=== PATIENT | female | born 1955 | race Caucasian/White ===

== ENCOUNTER 2022-08-31 11:41 | Emergency (ER) | payer OTHER ==
[2022-08-31] MEDS ORDERED: Lidocaine 1% 10 ML MDV INJECT ONE (12:14)
[2022-08-31] MEDS ORDERED: Diphtheria,Pertussis(Acell),Tetanus Vaccine 0.5 ML Syringe IM ONE (12:14)
[2022-08-31] MEDS ORDERED: Albuterol 0.083% 2.5 MG/3 ML Neb Soln NEB ONE (12:15)
[2022-08-31] MEDS ORDERED: Doxycycline Monohydrate 100 MG Cap PO ONE (14:26)
== END 2022-08-31 15:30 | disposition home or self-care (01) ==
LOC: JD.ED 11:41
DX: S81.812A Laceration without foreign body, left lower leg, initial encounter (principal); Z23 Encounter for immunization; W01.198A Fall on same level from slipping, tripping and stumbling with subsequent striking against other object, initial encounter
CPT/HCPCS: 12002; 90471; 90715; 94640; 99283; A9270; J3490; J7620-GY

== ENCOUNTER 2023-09-18 20:15 | Emergency (ER) | payer OTHER ==
[2023-09-18 20:52] LABS: BASOPHILS PERCENT AUTO 0.4 % (0.0-1.0); HEMATOCRIT 44.2 % (37.0-47.0); HEMOGLOBIN 14.8 gm/dl (12.0-16.0); IMMATURE GRAN ABSOLUTE AUTO 0.06 K/mm3 (0.00-0.05); IMMATURE GRAN PERCENT AUTO 0.6 % (0.0-0.4); LYMPHOCYTES ABSOLUTE AUTO 1.3 K/mm3 (1.0-4.8); LYMPHOCYTES PERCENT AUTO 12.2 % (24.0-44.0); MEAN CORPUSCULAR HEMOGLOBIN 28.9 pg (28.0-32.0); MEAN CORPUSCULAR HGB CONC 33.5 g/dl (32.0-36.0); MEAN CORPUSCULAR VOLUME 86.3 fl (83.0-99.0); MEAN PLATELET VOLUME 10.5 fl (9.4-12.3); MONOCYTES ABSOLUTE AUTO 0.4 K/mm3 (0.0-0.8); MONOCYTES PERCENT AUTO 3.8 % (0.0-8.0); NEUTROPHILS ABSOLUTE AUTO 8.6 K/mm3 (1.8-7.7); PLATELET COUNT,PLT 178 K/mm3 (150-400); RED BLOOD CELL COUNT 5.12 M/mm3 (4.10-5.30)
[2023-09-18] MEDS: Albuterol/Ipratropium 3.0-0.5 MG/3 ML Neb Soln NEB ONE (21:05)
[2023-09-18] MEDS: Sodium Chloride 0.9% 10 ML Syringe FLUSH PRN (21:15)
[2023-09-18] MEDS: methylPREDNISolone Sodium Succinate 125 MG/2 ML SDV IVPUSH ONE (21:15)
[2023-09-18 21:22] LABS: A/G RATIO 0.6 (1-2); BILIRUBIN TOTAL 1.1 mg/dL (0.2-1.0); BUN/CREATININE RATIO 14.5 (14-18); CALCIUM 9.1 mg/dL (8.5-10.1); EST CRCL DRUG DOSING (CG) 26.54 mL/min; MAGNESIUM 1.4 mg/dL (1.8-2.4); PROTEIN TOTAL,TP 8.3 g/dl (6.4-8.2)
[2023-09-18] MEDS: Sodium Chloride 0.9% 1,000 ML IV ONE (21:37)
[2023-09-18 21:48] LABS: CORONAVIRUS COVID-19 NAA NEGATIVE (NEGATIVE); INFLUENZA A NAA NEGATIVE (NEGATIVE); RESPIRATORY SYNCYTIAL VIR NAA NEGATIVE (NEGATIVE)
[2023-09-19] MEDS: Magnesium Sulfate/Water 2 GM in Premix Bag 1 BAG IV ONE (00:09)
[2023-09-19] MEDS: Bumetanide 1 MG/4 ML MDV IVPUSH ONE (00:09)
== END 2023-09-19 07:43 | disposition home or self-care (01) ==
LOC: JD.ED 20:15
DX: J45.909 Unspecified asthma, uncomplicated (principal); I10 Essential (primary) hypertension; E66.9 Obesity, unspecified; E11.9 Type 2 diabetes mellitus without complications; Z88.0 Allergy status to penicillin; Z88.1 Allergy status to other antibiotic agents; Z88.7 Allergy status to serum and vaccine; Z88.2 Allergy status to sulfonamides; Z88.8 Allergy status to other drugs, medicaments and biological substances; Z79.4 Long term (current) use of insulin; Z79.899 Other long term (current) drug therapy; Z91.048 Other nonmedicinal substance allergy status; Z88.5 Allergy status to narcotic agent; Z90.49 Acquired absence of other specified parts of digestive tract; Z90.710 Acquired absence of both cervix and uterus; Z68.43 Body mass index [BMI] 50.0-59.9, adult
CPT/HCPCS: 0241U; 36415; 71046; 80053; 83735; 84484; 85025; 93005; 94640; 96361; 96365; 96366; 96375; 99285; J2930; J3475; J3490; J7030; 93010; 99284; J7620-GY

== ENCOUNTER 2024-07-07 10:02 | Inpatient (IN) | payer OTHER ==
[~2024-07-07 10:02] MED LIST: Enoxaparin 40 MG/0.4 ML Syringe SUBCUT SCH
[2024-07-07 11:05] LABS: HEMATOCRIT 45.4 % (37.0-47.0); HEMOGLOBIN 14.7 gm/dl (12.0-16.0); MEAN CORPUSCULAR HEMOGLOBIN 28.5 pg (28.0-32.0); MEAN CORPUSCULAR HGB CONC 32.4 g/dl (32.0-36.0); MEAN PLATELET VOLUME 10.3 fl (9.4-12.3); PLATELET COUNT,PLT 201 K/mm3 (150-400); RED BLOOD CELL COUNT 5.16 M/mm3 (4.10-5.30)
[2024-07-07 11:25] LABS: INR 1.01; PROTHROMBIN TIME 10.7 SECONDS (9.7-12.0)
[2024-07-07 11:30] LABS: LACTIC ACID 1.2 mmol/L (0.4-2.0)
[2024-07-07] MEDS: cefTRIAXone 2 GM Vial IVPUSH ONE (11:33)
[2024-07-07 11:35] LABS: A/G RATIO 0.6 (1-2); ANION GAP 13.2 (5-15); BILIRUBIN TOTAL 0.6 mg/dL (0.2-1.0); BUN/CREATININE RATIO 15.5 (14-18); C-REACTIVE PROTEIN 0.42 mg/dL (<0.30); CALCIUM 9.1 mg/dL (8.5-10.1); CREATININE 2.2 mg/dL (0.55-1.02); EST CRCL DRUG DOSING (CG) 24.69 mL/min; POTASSIUM,K 4.2 mEq/L (3.5-5.1); PROTEIN TOTAL,TP 7.9 g/dl (6.4-8.2)
[2024-07-07] MEDS: Sodium Chloride 0.9% 10 ML Syringe FLUSH PRN (11:38)
[2024-07-07 11:56] LABS: BAND PERCENT MAN 0 % (0-10); BASOPHILS PERCENT MAN 0 (0.1-1.2); EOSINOPHILS PERCENT MAN 2 % (0.7-5.8); LYMPHOCYTES % ATYPICAL MANUAL 0 %; LYMPHOCYTES PERCENT MAN 39 % (20-40); MONOCYTES PERCENT MAN 7 % (2-10); PLATELET COUNT ESTIMATE ADEQUATE
[2024-07-07] MEDS ORDERED: Ondansetron 4 MG/2 ML SDV IV PRN (14:03)
[2024-07-07] MEDS ORDERED: Polyethylene Glycol 3350 Powder 17 GM Packet PO PRN (14:03)
[2024-07-07] MEDS ORDERED: Ondansetron 4 MG Tab.DIS PO PRN (14:03)
[2024-07-07] MEDS ORDERED: Docusate Sodium 100 MG Cap PO PRN (14:03)
[2024-07-07] MEDS ORDERED: Acetaminophen 325 MG Tab PO PRN (14:03)
[2024-07-07 14:36] LABS: HEMOGLOBIN A1C 8.5 %
[2024-07-07] MEDS ORDERED: Non-Formulary Medication 1 Each (Albuterol 18 GM Inhaler) INH PRN (15:01)
[2024-07-07] MEDS ORDERED: Albuterol 6.7 GM Inhaler INH PRN (15:04)
[2024-07-07] MEDS ORDERED: Labetalol 100 MG/20 ML MDV IVPUSH PRN (15:40)
[2024-07-07] MEDS: Nystatin Topical Powder 15 GM Bottle TOP SCH (15:48)
[2024-07-07 16:19] LABS: APPEARANCE,URINE SLT CLOUDY (Clear); BILIRUBIN,URINE NEGATIVE (Negative); COLOR,URINE YELLOW (Yellow); GLUCOSE,URINE TRACE (Negative); KETONES,URINE NEGATIVE (Negative); LEUKOCYTE ESTERASE,URINE TRACE (Negative); NITRITE,URINE NEGATIVE (Negative); OCCULT BLOOD,URINE 1+ (Negative); PROTEIN,URINE 3+ (Negative)
[2024-07-07 16:35] LABS: BACTERIA,URINE FEW /hpf (FEW); MUCUS,URINE FEW /hpf (FEW); RBC,URINE 0-5 /hpf (0-5); SQUAMOUS EPITHELIAL CELLS,UR 0-5 /hpf (0-5); WBC,URINE 20-30 /hpf (0-5)
[2024-07-07] MEDS: Insulin Lispro 100 Unit/ML 3 ML KwikPen SUBCUT SCH (18:37)
[2024-07-07] MEDS: Insulin Glargine,Human Rec. Analog 100 Units/ML 3 ML Pen SUBCUT SCH (18:38)
[2024-07-07] MEDS: hydrALAZINE 20 MG/ML SDV IVPUSH PRN (21:29)
[2024-07-08 05:49] LABS: BASOPHILS PERCENT AUTO 0.6 % (0.0-1.0); EOSINOPHILS ABSOLUTE AUTO 0.3 K/mm3 (0.0-0.4); EOSINOPHILS PERCENT AUTO 3.4 % (0.0-6.0); HEMATOCRIT 42.9 % (37.0-47.0); HEMOGLOBIN 14.1 gm/dl (12.0-16.0); IMMATURE GRAN ABSOLUTE AUTO 0.02 K/mm3 (0.00-0.05); IMMATURE GRAN PERCENT AUTO 0.3 % (0.0-0.4); LYMPHOCYTES ABSOLUTE AUTO 2.6 K/mm3 (1.0-4.8); LYMPHOCYTES PERCENT AUTO 35.4 % (24.0-44.0); MEAN CORPUSCULAR HEMOGLOBIN 28.5 pg (28.0-32.0); MEAN CORPUSCULAR HGB CONC 32.9 g/dl (32.0-36.0); MEAN CORPUSCULAR VOLUME 86.7 fl (83.0-99.0); MEAN PLATELET VOLUME 10.4 fl (9.4-12.3); MONOCYTES ABSOLUTE AUTO 0.4 K/mm3 (0.0-0.8); MONOCYTES PERCENT AUTO 5.9 % (0.0-8.0); NEUTROPHILS ABSOLUTE AUTO 3.9 K/mm3 (1.8-7.7); NEUTROPHILS PERCENT AUTO 54.4 % (41.0-71.0); PLATELET COUNT,PLT 177 K/mm3 (150-400); RED BLOOD CELL COUNT 4.95 M/mm3 (4.10-5.30); WHITE BLOOD CELL COUNT,WBC 7.25 K/mm3 (3.9-11.3)
[2024-07-08 06:10] LABS: A/G RATIO 0.6 (1-2); ALBUMIN 2.8 g/dl (3.4-5.0); ANION GAP 11.3 (5-15); BILIRUBIN TOTAL 0.5 mg/dL (0.2-1.0); BUN/CREATININE RATIO 15.7 (14-18); C-REACTIVE PROTEIN 0.38 mg/dL (<0.30); CALCIUM 9.5 mg/dL (8.5-10.1); CREATININE 2.1 mg/dL (0.55-1.02); EST CRCL DRUG DOSING (CG) 25.86 mL/min; MAGNESIUM 1.7 mg/dL (1.8-2.4); POTASSIUM,K 4.3 mEq/L (3.5-5.1); PROTEIN TOTAL,TP 7.6 g/dl (6.4-8.2)
[2024-07-08] MEDS: Enoxaparin 40 MG/0.4 ML Syringe SUBCUT SCH (08:29)
[2024-07-08] MEDS: Insulin Glargine,Human Rec. Analog 100 Units/ML 3 ML Pen SUBCUT SCH (08:30)
[2024-07-08] MEDS: Losartan 25 MG Tab PO SCH (08:31)
[2024-07-08] MEDS: Carvedilol 12.5 MG Tab PO SCH (08:31)
[2024-07-08] MEDS: cefTRIAXone 2 GM Vial IVPUSH SCH (10:50)
[2024-07-08] MEDS ORDERED: Furosemide 40 MG Tab PO PRN (13:39)
== END 2024-07-08 17:37 | disposition home or self-care (01) | DRG 603 ==
LOC: JD.ED 10:02 → JD.MS 14:03
PROVIDERS: ADMIT Student in an Organized Health Care Education/Training Program; ATTEND Family Medicine
DX: L03.116 Cellulitis of left lower limb (principal); I13.0 Hypertensive heart and chronic kidney disease with heart failure and stage 1 through stage 4 chronic kidney disease, or unspecified chronic kidney disease; Z68.43 Body mass index [BMI] 50.0-59.9, adult; L97.821 Non-pressure chronic ulcer of other part of left lower leg limited to breakdown of skin; N18.4 Chronic kidney disease, stage 4 (severe); L02.416 Cutaneous abscess of left lower limb; I25.10 Atherosclerotic heart disease of native coronary artery without angina pectoris; I50.9 Heart failure, unspecified; E11.22 Type 2 diabetes mellitus with diabetic chronic kidney disease; J45.909 Unspecified asthma, uncomplicated; Z96.659 Presence of unspecified artificial knee joint; B35.4 Tinea corporis; E66.01 Morbid (severe) obesity due to excess calories; E11.69 Type 2 diabetes mellitus with other specified complication; E11.51 Type 2 diabetes mellitus with diabetic peripheral angiopathy without gangrene; Z95.5 Presence of coronary angioplasty implant and graft; Z79.899 Other long term (current) drug therapy; Z88.1 Allergy status to other antibiotic agents; Z88.5 Allergy status to narcotic agent; Z88.0 Allergy status to penicillin; Z88.2 Allergy status to sulfonamides; Z88.7 Allergy status to serum and vaccine; Z88.8 Allergy status to other drugs, medicaments and biological substances; Z79.4 Long term (current) use of insulin; Z79.51 Long term (current) use of inhaled steroids; Z98.890 Other specified postprocedural states; Z90.89 Acquired absence of other organs; Z90.49 Acquired absence of other specified parts of digestive tract; Z90.710 Acquired absence of both cervix and uterus
CPT/HCPCS: 36415; 80053; 81001; 82947; 83036; 83605; 83735; 83880; 84484; 85007; 85025; 85027; 85610; 86140; 87040; 87070; 87075; 87077; 87086; 87186; 87205; 93005; 93010; 96374; 97161-GP; 97530-GP; 99284-25; 99285; A9270-GY; J0360; J0696; J1650; J1815; J1815-GY

== ENCOUNTER 2025-01-05 09:45 | Inpatient (IN) | payer OTHER ==
[2025-01-05] MEDS ORDERED: Sodium Chloride 0.9% 10 ML Syringe FLUSH PRN (10:04)
[2025-01-05] MEDS: Furosemide 40 MG/4 ML VIAL IVPUSH ONE ×3 (10:13→17:59)
[2025-01-05 10:31] LABS: BASOPHILS ABSOLUTE AUTO 0.1 K/mm3 (0.0-0.2); BASOPHILS PERCENT AUTO 0.6 % (0.0-1.0); EOSINOPHILS ABSOLUTE AUTO 0.2 K/mm3 (0.0-0.4); EOSINOPHILS PERCENT AUTO 2.4 % (0.0-6.0); IMMATURE GRAN ABSOLUTE AUTO 0.04 K/mm3 (0.00-0.05); IMMATURE GRAN PERCENT AUTO 0.5 % (0.0-0.4); LYMPHOCYTES ABSOLUTE AUTO 2.6 K/mm3 (1.0-4.8); LYMPHOCYTES PERCENT AUTO 32.4 % (24.0-44.0); MEAN PLATELET VOLUME 10.4 fl (9.4-12.3); MONOCYTES ABSOLUTE AUTO 0.4 K/mm3 (0.0-0.8); MONOCYTES PERCENT AUTO 5.4 % (0.0-8.0); NEUTROPHILS ABSOLUTE AUTO 4.7 K/mm3 (1.8-7.7); NEUTROPHILS PERCENT AUTO 58.7 % (41.0-71.0); NRBC ABSOLUTE 0.00 (0.00-0.02); NRBC PERCENT 0.0 % (0.0-0.2); PLATELET COUNT,PLT 174 K/mm3 (150-400); RED BLOOD CELL COUNT 5.08 M/mm3 (4.10-5.30); WHITE BLOOD CELL COUNT,WBC 8.08 K/mm3 (3.9-11.3)
[2025-01-05 11:02] LABS: A/G RATIO 0.6 (1-2); ALANINE AMINOTRANSFERASE,ALT 19.0 U/L (14-59); ASPARTATE AMNIOTRANSFERASE,AST 16.0 U/L (15-37); BILIRUBIN TOTAL 0.4 mg/dL (0.2-1.0); BLOOD UREA NITROGEN,BUN 30.0 mg/dL (7-18); CARBON DIOXIDE,CO2 25.0 mEq/L (21-32); CHLORIDE,CL 107.0 mEq/L (98-107); CREATININE 2.1 mg/dL (0.55-1.02); EST CRCL DRUG DOSING (CG) 23.07 mL/min; ESTIMATED GFR 25.0 mL/min (>60); GLUCOSE RANDOM 180.0 mg/dL (70-99); POTASSIUM,K 4.2 mEq/L (3.5-5.1); PROTEIN TOTAL,TP 7.8 g/dl (6.4-8.2); SODIUM,NA 139.0 mEq/L (136-145); TROPONIN I HIGH SENSITIVITY 13.0 pg/mL (<=51)
[2025-01-05] MEDS ORDERED: Ondansetron 4 MG Tab.DIS PO PRN (13:26)
[2025-01-05] MEDS ORDERED: Ondansetron 4 MG/2 ML SDV IV PRN (13:26)
[2025-01-05] MEDS ORDERED: Albuterol 0.083% 2.5 MG/3 ML Neb Soln NEB PRN (15:00)
[2025-01-05] MEDS ORDERED: Formoterol/Mometasone 100-5 MCG 8.8 GM Inhaler INH PRN (15:19)
[2025-01-05 15:58] LABS: TSH 4.556 uIU/mL (0.358-3.74)
[2025-01-05] MEDS: Heparin Sodium 5,000 Units/ML Vial SUBCUT SCH (16:04)
[2025-01-05 16:18] LABS: T4 FREE 1.27 ng/dL (0.76-1.46)
[2025-01-05] MEDS: Insulin Lispro 100 Unit/ML 3 ML KwikPen SUBCUT SCH (17:46)
[2025-01-06] MEDS: Furosemide 40 MG/4 ML VIAL IVPUSH SCH (05:27)
[2025-01-06 06:06] LABS: BASOPHILS ABSOLUTE AUTO 0.1 K/mm3 (0.0-0.2); BASOPHILS PERCENT AUTO 0.7 % (0.0-1.0); EOSINOPHILS ABSOLUTE AUTO 0.2 K/mm3 (0.0-0.4); EOSINOPHILS PERCENT AUTO 2.6 % (0.0-6.0); IMMATURE GRAN ABSOLUTE AUTO 0.03 K/mm3 (0.00-0.05); IMMATURE GRAN PERCENT AUTO 0.4 % (0.0-0.4); LYMPHOCYTES ABSOLUTE AUTO 2.7 K/mm3 (1.0-4.8); LYMPHOCYTES PERCENT AUTO 37.0 % (24.0-44.0); MEAN PLATELET VOLUME 10.2 fl (9.4-12.3); MONOCYTES ABSOLUTE AUTO 0.5 K/mm3 (0.0-0.8); MONOCYTES PERCENT AUTO 6.5 % (0.0-8.0); NEUTROPHILS ABSOLUTE AUTO 3.9 K/mm3 (1.8-7.7); NEUTROPHILS PERCENT AUTO 52.8 % (41.0-71.0); NRBC ABSOLUTE 0.00 (0.00-0.02); NRBC PERCENT 0.0 % (0.0-0.2); PLATELET COUNT,PLT 159 K/mm3 (150-400); RED BLOOD CELL COUNT 4.86 M/mm3 (4.10-5.30); WHITE BLOOD CELL COUNT,WBC 7.36 K/mm3 (3.9-11.3)
[2025-01-06 06:27] LABS: A/G RATIO 0.6 (1-2); ALANINE AMINOTRANSFERASE,ALT 15.0 U/L (14-59); ASPARTATE AMNIOTRANSFERASE,AST 12.0 U/L (15-37); BILIRUBIN TOTAL 0.5 mg/dL (0.2-1.0); BLOOD UREA NITROGEN,BUN 34.0 mg/dL (7-18); CARBON DIOXIDE,CO2 28.0 mEq/L (21-32); CHLORIDE,CL 105.0 mEq/L (98-107); CREATININE 2.2 mg/dL (0.55-1.02); EST CRCL DRUG DOSING (CG) 24.69 mL/min; ESTIMATED GFR 24.0 mL/min (>60); GLUCOSE RANDOM 243.0 mg/dL (70-99); PHOSPHORUS 4.7 mg/dL (2.6-4.7); POTASSIUM,K 4.4 mEq/L (3.5-5.1); PROTEIN TOTAL,TP 7.5 g/dl (6.4-8.2); SODIUM,NA 139.0 mEq/L (136-145)
[2025-01-06] MEDS: Insulin Glargine,Human Rec. Analog 100 Units/ML 3 ML Pen SUBCUT SCH (08:09)
[2025-01-07 07:07] LABS: BLOOD UREA NITROGEN,BUN 39.0 mg/dL (7-18); CARBON DIOXIDE,CO2 29.0 mEq/L (21-32); CHLORIDE,CL 103.0 mEq/L (98-107); CREATININE 2.5 mg/dL (0.55-1.02); EST CRCL DRUG DOSING (CG) 21.73 mL/min; ESTIMATED GFR 20.0 mL/min (>60); GLUCOSE RANDOM 170.0 mg/dL (70-99); POTASSIUM,K 4.2 mEq/L (3.5-5.1); SODIUM,NA 140.0 mEq/L (136-145)
[2025-01-07] MEDS: Insulin Glargine,Human Rec. Analog 100 Units/ML 3 ML Pen SUBCUT SCH (08:03)
[2025-01-07] MEDS ORDERED: 50% Dextrose in Water 50 ML Syringe IVPUSH PRN (13:36)
[2025-01-08 06:19] LABS: BLOOD UREA NITROGEN,BUN 42.0 mg/dL (7-18); CARBON DIOXIDE,CO2 28.0 mEq/L (21-32); CHLORIDE,CL 103.0 mEq/L (98-107); CREATININE 2.3 mg/dL (0.55-1.02); EST CRCL DRUG DOSING (CG) 23.61 mL/min; ESTIMATED GFR 23.0 mL/min (>60); GLUCOSE RANDOM 100.0 mg/dL (70-99); PHOSPHORUS 3.9 mg/dL (2.6-4.7); POTASSIUM,K 3.6 mEq/L (3.5-5.1); SODIUM,NA 138.0 mEq/L (136-145)
[2025-01-08] MEDS: Furosemide 40 MG/4 ML VIAL IVPUSH ONE (10:04)
[2025-01-08] MEDS: Mirabegron 25 MG Tab Extended Release PO SCH (10:04)
[2025-01-09 08:19] LABS: BLOOD UREA NITROGEN,BUN 46.0 mg/dL (7-18); CARBON DIOXIDE,CO2 31.0 mEq/L (21-32); CHLORIDE,CL 100.0 mEq/L (98-107); CREATININE 2.6 mg/dL (0.55-1.02); EST CRCL DRUG DOSING (CG) 20.89 mL/min; ESTIMATED GFR 20.0 mL/min (>60); GLUCOSE RANDOM 99.0 mg/dL (70-99); POTASSIUM,K 4.0 mEq/L (3.5-5.1); SODIUM,NA 138.0 mEq/L (136-145)
[2025-01-10 08:17] LABS: BLOOD UREA NITROGEN,BUN 47.0 mg/dL (7-18); CARBON DIOXIDE,CO2 28.0 mEq/L (21-32); CHLORIDE,CL 101.0 mEq/L (98-107); CREATININE 2.7 mg/dL (0.55-1.02); EST CRCL DRUG DOSING (CG) 20.12 mL/min; ESTIMATED GFR 19.0 mL/min (>60); GLUCOSE RANDOM 151.0 mg/dL (70-99); POTASSIUM,K 3.9 mEq/L (3.5-5.1); SODIUM,NA 135.0 mEq/L (136-145)
== END 2025-01-10 17:34 | disposition home or self-care (01) | DRG 291 ==
LOC: JD.ED 09:45 → JD.MS 12:55
PROVIDERS: ADMIT Family Medicine; ATTEND Student in an Organized Health Care Education/Training Program
DX: I13.0 Hypertensive heart and chronic kidney disease with heart failure and stage 1 through stage 4 chronic kidney disease, or unspecified chronic kidney disease (principal); J96.01 Acute respiratory failure with hypoxia; Z68.43 Body mass index [BMI] 50.0-59.9, adult; N18.4 Chronic kidney disease, stage 4 (severe); N17.9 Acute kidney failure, unspecified; E11.22 Type 2 diabetes mellitus with diabetic chronic kidney disease; J45.909 Unspecified asthma, uncomplicated; I25.10 Atherosclerotic heart disease of native coronary artery without angina pectoris; R56.9 Unspecified convulsions; E66.01 Morbid (severe) obesity due to excess calories; D64.9 Anemia, unspecified; S81.802A Unspecified open wound, left lower leg, initial encounter; E65 Localized adiposity; Z95.5 Presence of coronary angioplasty implant and graft; Z88.0 Allergy status to penicillin; Z88.8 Allergy status to other drugs, medicaments and biological substances; Z79.4 Long term (current) use of insulin; Z79.899 Other long term (current) drug therapy; Z86.16 Personal history of COVID-19; Z90.49 Acquired absence of other specified parts of digestive tract; Z98.890 Other specified postprocedural states; Z90.710 Acquired absence of both cervix and uterus
CPT/HCPCS: 36415; 71045; 71045-26; 80048; 80053; 82947; 83036; 83735; 83880; 84100; 84439; 84443; 84484; 85025; 93005; 93010; 93306; 93971-26-LT; 93971-LT; 94761; 96374; 97110-GP; 97116-GP; 97162-GP; 97166-GO; 97530-GP; 97535-GO; 99285; 99285-25; A9270-GY; J1644; J1815-GY; J1938; J3475